=== PATIENT | female | born 1990 | race Caucasian/White ===

== ENCOUNTER 2020-12-14 00:23 | Emergency (ER) | payer MEDICAID ==
[~2020-12-14] VITALS: Ht 162.6 cm; Wt 54.4 kg
[~2020-12-14 00:23] MED LIST: BIRTH CONTROLL IMPLA; CLEOCIN HCL300 MG PO; FLEXERIL PO; HYDROCODON-ACE1 EAC7 PO; LORTAB 5 MG/5001 TA1 PO; NOHOMEMEDICATIONS; PHENERGAN 25 MG25 M1 PO; TORADOL 10 MG T10 MG PO
[2020-12-14] MEDS ORDERED: SUBOXONE 8 MG-1 EAC3 (00:48)
[2020-12-14 01:26] LABS: URINE BILIRUBIN NEGATIVE (Negative); URINE BLOOD NEGATIVE (Negative); URINE CLARITY CLEAR; URINE COLOR YELLOW; URINE GLUCOSE-RANDOM NEGATIVE (Negative); URINE KETONES NEGATIVE (Negative); URINE LEUKOCYTES NEGATIVE (Negative); URINE NITRITE NEGATIVE (Negative); URINE PROTEIN NEGATIVE (Negative); URINE SPECIFIC GRAVITY <= 1.005 (1.005-1.030); URINE UROBILINOGEN 0.2 E.U./dl (0.2-1.0)
== END 2020-12-14 01:10 | disposition left against medical advice (07) ==
LOC: M.ERS 00:23
PROVIDERS: Emergency Medicine
DX: R10.9 Unspecified abdominal pain (principal); Z53.21 Procedure and treatment not carried out due to patient leaving prior to being seen by health care provider; Z88.0 Allergy status to penicillin